=== PATIENT | male | born 1980 ===

== ENCOUNTER 2021-07-08 08:47 | Emergency (ER) | payer OTHER ==
[~2021-07-08] VITALS: Ht 185.4 cm; Wt 108.9 kg
[2021-07-08] MEDS ORDERED: TRILIPIX45 MG (08:58)
[2021-07-08] MEDS ORDERED: ATACAND4 MG (08:58)
[2021-07-08] MEDS ORDERED: NORFLEX100MG PO (11:42)
[2021-07-08] MEDS ORDERED: KETO10TA2 PO (11:42)
== END 2021-07-08 11:51 | disposition home or self-care (01) ==
LOC: ER 08:47
DX: R07.89 Other chest pain (principal); I10 Essential (primary) hypertension